=== PATIENT | male | born 1960 | race Two or more races ===

== ENCOUNTER 2024-11-02 12:54 | Inpatient (IN) | payer MEDICAID, OTHER ==
[~2024-11-02] VITALS: Ht 180.3 cm; Wt 76.4 kg
[2024-11-02] MEDS: ONDANSETRON HCL 4 MG/2 ML VIAL IV ONE (13:42)
[2024-11-02] MEDS: MORPHINE SULFATE 4 MG/ML SYR/VIAL IV ONE (13:43)
[2024-11-02] MEDS: SODIUM CHLORIDE 0.9% 500 ML IVB ONE (13:43)
[2024-11-02 13:56] LABS: Basophils # (auto) 0 10 ^3/uL (0-0.2); Basophils % (auto) 0.2 % (0.0-2.0); Eosinophils # (auto) 0 10 ^3/uL (0-0.8); Hematocrit 45.9 % (41.0-53.0); Hemoglobin 15.3 g/dL (13.5-17.5); Lymphocytes # (auto) 0.8 10 ^3/uL (0.4-5.4); Lymphocytes % (auto) 7.3 % (10.0-50.0); Mean Corpuscular Hemoglobin 30.4 pg (28.0-32.0); Mean Corpuscular Hgb Conc. 33.3 g/dL (32.0-36.0); Mean Corpuscular Volume 91.2 fL (80.0-100.0); Monocytes # (auto) 0.5 10 ^3/uL (0-1.3); Monocytes % (auto) 4.8 % (0.0-12.0); Neutrophils % (auto) 87.7 % (37.0-80.0); Nucleated Red Blood Cells % 0.2 %; Platelet Count (auto) 276 10^3/uL (140-450); Red Blood Cells 5.03 10^6/uL (4.5-5.90); Red Cell Distribution Width 13.7 % (11.8-14.3); White Blood Cell 11.4 10^3/uL (4.4-10.8)
--- NOTE | 2024-11-02 14:07 | DVH ---
CT ABDOMEN AND PELVIS WITHOUT CONTRAST CLINICAL HISTORY: pain TECHNIQUE: Multiple contiguous axial images of the abdomen and pelvis without intravenous contrast. T he images were reformatted degenerate coronal and sagittal reconstructions. All CT scans at this medical facility are performed using dose modulation techniques as appropriate t o a performed exam including the following:Automated exposure control was utilized; adjustment of the MA and/or KV according to patient size; and use of iterative reconstruction technique. Radiation Dose Information: CT Dose: CTDI volume is 8 mGy. Dose-length product is 474 mGy*cm Comparison: None FINDINGS: Evaluation of the abdomen and pelvis is limited without intravenous contrast. There is a 1.9 cm left lower pole renal cyst. There is no evidence of nephrolithiasis or hydronephros is. The liver, gallbladder, pancreas, adrenal glands, and spleen appear within normal limits. There is no gross evidence of abdominal lymphadenopathy. There is no free fluid or free air. The stomach grossly appears unremarkable. The small and large bowel loops demonstrate normal caliber . The appendix is not seen in the right lower quadrant abdomen. There are no secondary signs of acut e appendicitis. The abdominal aorta and IVC appear within normal limits. The bladder appears unremarkable for the degree of distention. There is mild prostatomegaly.. There is no gross evidence of a pelvic mass. There is no free fluid collection. Is a small fat containing l eft inguinal hernia. Lung bases are clear. There is no acute osseous abnormality. IMPRESSION: 1. There is no acute process in the abdomen and pelvis. 2. Mild prostatomegaly. 3. Small fat containing left inguinal hernia. HS:Y
[2024-11-02 14:24] LABS: Alanine Aminotransferase 19 U/L (7-40); Alkaline Phosphatase 87 U/L (46-116); Anion Gap 11 (5-15); Aspartate Aminotransferase 19 U/L (13-40); BUN/Creatinine Ratio 10.5 (10.0-20.0); Blood Urea Nitrogen 10 mg/dL (9-23); Calcium 9.8 mg/dL (8.7-10.4); Carbon Dioxide 24 mmol/L (20-31); Potassium 3.9 mmol/L (3.5-5.1); Sodium 144 mmol/L (136-145); Total Protein 7.2 g/dL (5.7-8.2)
[2024-11-02 14:25] LABS: Albumin 4.5 g/dL (3.2-4.8); Bilirubin, Total 0.7 mg/dL (0.2-1.0); Chloride 109 mmol/L (98-107); Glucose 110 mg/dL (74-106)
--- NOTE | 2024-11-02 14:33 | ED.PDOC ---
GI ASSESSMENT HPI Comments This is a 64-year-old male who comes in with chief complaint of abdominal pain. The patient states that the symptoms started approximately one day ago. The pain is in the lower abdominal area it was associated with nausea, vomiting and diarrhea. The patient describes the pain as cramping pain. He his stool is very dark and somewhat reddish. He states that the pain is a 5/10. The patient was given Zofran 4 mg IV push for the nausea and vomiting. He states that he has been seen for a similar episode in the past. Chief Complaint: Abdominal Pain Time Seen by MD: 13:03 Reviewed Notes: Nurses Notes, Medications, Allergies (Allergies to aspirin) Allergies: Coded Allergies: Aspirin (Verified Allergy, Unknown, 11/02/24) Information Source: Patient, Emergency Med Personnel Mode of Arrival: EMS Timing: Days Duration: Since onset Prehospital treatment: IVF, Other (Zofran 4 mg IV push) Quality: Aching, Cramping Vomitus: Bilious Stool: Blood Streaked Severity: Moderate Recent: None Recent Hx of: Other (History of peptic ulcer disease) Pain Location: RLQ, LLQ Modifying Factors: Nothing Associated sign and symptoms: Nausea, Vomiting, Diarrhea, Abdominal Pain Past Medical History PAST MEDICAL HISTORY: High Lipids, PUD Surgical History (Other): Peptic ulcer surgery, knee surgery, wrist surgery Family History Family History: Family hx of Cancer Social History Smoker: Non-Smoker Alcohol: Denies ETOH Use Drugs: Marijuana Lives In: Home Constitutional: denies: chills, diaphoresis, fatigue, fever, malaise, sweats, weakness, others EENTM: denies: blurred vision, double vision, ear bleeding, ear discharge, ear drainage, ear pain, ear ringing, eye pain, eye redness, hearing loss, mouth pain, mouth swelling, nasal discharge, nose bleeding, nose congestion, nose pain, photophobia, tearing, throat pain, throat swelling, voice changes, others Respiratory: denies: cough, hemoptysis, orthopnea, SOB at rest, shortness of breath, SOB with excertion, stridor, wheezing, others Cardiovascular: denies: chest pain, dizzy spells, diaphoresis, Dyspnea on exertion, edema, irregular heart beat, left arm pain, lightheadedness, palpitations, PND, syncope, others Gastrointestinal: reports: abdominal pain, nausea, vomiting, others (Dark red stool); denies: abdomen distended, blood streaked bowels, constipated, diarrhea, dysphagia, difficulty swallowing, hematemesis, melena, poor appetite, poor fluid intake, rectal bleeding, rectal pain Genitourinary: denies: burning, dysuria, flank pain, frequency, hematuria, incontinence, penile discharge, penile sore, pain, testicle pain, testicle swelling, urgency, others Neurological: denies: dizziness, fainting, headache, left sided numbness, left sided weakness, numbness, paresthesia, pre-existing deficit, right sided numbness, right sided weakness, seizure, speech problems, tingling, tremors, weakness, others Musculoskeletal: denies: back pain, gout, joint pain, joint swelling, muscle pain, muscle stiffness, neck pain, others Integumetry: denies: bruises, change in color, change in hair/nails, dryness, laceration, lesions, lumps, rash, wounds, others Allergic/Immunocompromised: denies: Difficulty Healing, Frequent Infections, Hives, Itching, others Hematologic/Lymphatic: denies: anemia, blood clots, easy bleeding, easy bruising, swollen glands, others Endocrine: denies: excessive hunger, excessive sweating, excessive thirst, excessive urination, flushing, intolerance to cold, intolerance to heat, unexplained weight gain, unexplained weight loss, others Psychiatric: denies: anxiety, bipolar disorder, depression, hopeless, panic disorder, schizophrenia, sleepless, suicidal, others Physical Exam General Appearance: Moderate Distress HEENT: Normal ENT Inspection, Pharynx Normal, TMs Normal Neck: Full Range of Motion, Non-Tender, Normal, Normal Inspection Respiratory: Chest Non-Tender, Lungs Clear, No Accessory Muscle Use, No Respiratory Distress, Normal Breath Sounds Cardiovascular: No Edema, No JVD, No Murmur, No Gallop, Normal Peripheral Pulses, Regular Rate/Rhythm Breast Exam: Deferred Gastrointestinal: Diffuse, No Organomegaly, No Pulsatile Mass, Normal Bowel Sounds, Soft, Tenderness Genitalia: Deferred Pelvic: Deferred Rectal: Deferred Extremities: No calf tenderness, Normal capillary refill, Normal inspection, Normal range of motion, Non-tender, No pedal edema Musculoskeletal : Apperance: Normal Neurologic: Alert, equipment services associate II-XII nml as Tested, No Motor Deficits, Normal Affect, Normal Mood, No Sensory Deficits Cerebellar Function: Normal Reflexes: Normal Skin: Dry, Normal Color, Warm Lymphatic: No Adenopathy EKG EKG : Pulse Rate (adult): 64 [place]: Normal Cardiac Rhythm: NSR ST: Nonsp Was a procedure done? Was a procedure done?: No GI differential Dx Differential Diagnosis: Cholecystitis, Diverticular disease, Gastritis/PUD, Gastroenteritis, Inflammatory BD, Pancreatitis X-Ray, Labs, Meds, VS Vital Signs Date Time Temp Pulse Resp B/P (MAP) Pulse Ox O2 Delivery O2 Flow Rate FiO2 11/02/24 15:20 67 16 97 Room Air* 0 21 11/02/24 15:18 67 16 121/74 11/02/24 15:07 67 18 96 Room Air 11/02/24 15:07 99.0 67 18 121/74 (90) 96 99.0 11/02/24 14:33 64 11/02/24 13:43 62 20 120/67 11/02/24 13:10 99.3 62 20 120/67 (84) 98 11/02/24 12:59 64 Lab Test 11/02/24 15:00 11/02/24 13:41 Range/Units Urine Color Light-brown Yellow Urine Clarity Turbid H Clear Urine pH 8.5 5.0-9.0 Urine Specific [place] 1.021 1.001-1.035 Urine Protein 1+ H Negative Urine Ketones Trace Negative Urine Blood 3+ H Negative /uL Urine Nitrite Negative Negative Urine Bilirubin Negative Negative Urine Urobilinogen Normal Negative mg/dL Urine Leukocyte Esterase Negative Negative /uL Urine RBC 3123 0 - 3 /hpf Urine Microscopic WBC 1 0-3 /HPF Urine Squamous Epithelial Cells None seen <5 /hpf Urine Bacteria None seen None Seen /hpf Urine Mucus Few None Seen Urine Glucose Normal Normal mg/dL White Blood Count 11.4 H 4.4-10.8 10^3/uL Red Blood Count 5.03 4.5-5.90 10^6/uL Hemoglobin 15.3 13.5-17.5 g/dL Hematocrit 45.9 41.0-53.0 % Mean Corpuscular Volume 91.2 80.0-100.0 fL Mean Corpuscular Hemoglobin 30.4 28.0-32.0 pg Mean Corpuscular Hemoglobin Concent 33.3 32.0-36.0 g/dL Red Cell Distribution Width 13.7 11.8-14.3 % Platelet Count 276 140-450 10^3/uL Mean Platelet Volume 7.2 6.9-10.8 fL Neutrophils (%) (Auto) 87.7 H 37.0-80.0 % Lymphocytes (%) (Auto) 7.3 L 10.0-50.0 % Monocytes (%) (Auto) 4.8 0.0-12.0 % Eosinophils (%) (Auto) 0.0 0.0-7.0 % Basophils (%) (Auto) 0.2 0.0-2.0 % Neutrophils # (Auto) 10.0 H 1.6-8.6 10 ^3/uL Lymphocytes # (Auto) 0.8 0.4-5.4 10 ^3/uL Monocytes # (Auto) 0.5 0-1.3 10 ^3/uL Eosinophils # (Auto) 0 0-0.8 10 ^3/uL Basophils # (Auto) 0 0-0.2 10 ^3/uL Nucleated Red Blood Cells 0.2 % Sodium Level 144 136-145 mmol/L Potassium Level 3.9 3.5-5.1 mmol/L Chloride Level 109 H 98-107 mmol/L Carbon Dioxide Level 24 20-31 mmol/L Anion Gap 11 5-15 Blood Urea Nitrogen 10 9-23 mg/dL Creatinine 0.95 0.700-1.30 mg/dL Glomerular Filtration Rate Calc 89 >90 mL/min BUN/Creatinine Ratio 10.5 10.0-20.0 Serum Glucose 110 H 74-106 mg/dL Calcium Level 9.8 8.7-10.4 mg/dL Total Bilirubin 0.7 0.2-1.0 mg/dL Aspartate Amino Transferase (AST) 19 13-40 U/L Alanine Aminotransferase (ALT) 19 7-40 U/L Alkaline Phosphatase 87 46-116 U/L Total Protein 7.2 5.7-8.2 g/dL Albumin 4.5 3.2-4.8 g/dL Current Medications Medications (Trade) Dose Ordered Sig/Dimitry Route Start Time Stop Time Status Last Admin Ondansetron HCl (Zofran) 4 mg ONCE ONCE IV 11/02/24 13:30 11/02/24 13:31 DC 11/02/24 13:42 Morphine Sulfate 4 mg ONCE ONCE IV 11/02/24 13:30 11/02/24 13:31 DC 11/02/24 13:43 Sodium Chloride 500 ml @ 500 mls/hr Q1H ONCE IVB 11/02/24 13:30 11/02/24 14:29 DC 11/02/24 13:43 IV Hep-Lock was established The patient was given morphine 4 mg IV push for the pain The patient was given Zofran 4 mg IV push for the nausea The patient was being bolused with normal saline The CBC shows an elevated white blood cell count of 11.4 The rest of the CBC and chemistry panel are within normal limits CT scan of the abdomen and pelvis shows: IMPRESSION: 1. There is no acute process in the abdomen and pelvis. 2. Mild prostatomegaly. 3. Small fat containing left inguinal hernia. The patient was being admitted to the hospitalist. Images Reviewed?: Images reviewed and evaluated by me Time of 1ST Reevaluation: 14:33 Reevaluation 1ST: Unchanged Patient Education/Counseling: Diagnosis, Treatment, Prognosis Family Education/Counseling: No Family Present Departure 1 Departure Time of Disposition: 16:50 Impression: Primary Impression: Intractable abdominal pain Additional Impression: Lower GI bleed Disposition: ADMITTED INPATIENT Admit to: Med Surg Condition: Fair Critical Care Note Critical Care Time?: No Stability Stability form required: Yes Unstable for transfer: ED Physician Assesment (Clinical assesment) Heart Score Heart Score: Heart Score Response (Comments) Value History N/A 0 EKG N/A 0 Age N/A 0 Risk Factors N/A 0 Troponin N/A 0 Total 0 ASHISH PEÑALOZA MD Nov 02, 2024 14:33
[2024-11-02 15:20] VITALS: PULSE 67; RESP 16; O2SAT 97
[2024-11-02 15:38] LABS: Urine Bacteria None Seen /hpf (None Seen)
[2024-11-02 15:51] LABS: Urine Blood 3+ /uL (Negative); Urine Clarity Turbid (Clear); Urine Color Light-Brown (Yellow); Urine Mucus FEW (None Seen); Urine Protein, UAD 1+ (Negative); Urine Specific Gravity 1.021 (1.001-1.035); Urine Squamous Epithelial Cell None Seen /hpf (<5); Urine Urobilinogen Normal (Negative); Urine WBC 1 /HPF (0-3); Urine pH 8.5 (5.0-9.0)
[2024-11-02] MEDS: SODIUM CHLORIDE 0.9% 1,000 ML IV ONE (17:15)
--- NOTE | 2024-11-02 17:43 | DVHHP2 ---
History of Present Illness Reason for Visit: Nausea, vomiting, diarrhea History of Present Illness Hong Duckworth is a 64-year-old male with past medical history of hyperlipidemia, depression, and peptic ulcer disease, who came in for abdominal pain. Patient states he yesterday he started having abdominal pain with nausea, vomiting, and diarrhea. He states his vomiting is brown, coffee colored, and he has bright red blood in his diarrhea. He has a history of a bleeding ulcer over 10 years ago that had to be cauterized. States his last EGD was about 2 years ago. Cardiovascular: hyperipidemia GI: Peptic Ulcer disease Psych: Depression Past Surgical History: Other (bilateral knee repair, right wrist, ulcer) Smoke: No ALCOHOL: none Drugs: Marijuana Lives: with Family Domestic Violence: Neg Review of Systems Constitutional: No: Fever, Chills, Sweats, Weakness, Malaise, Other Eyes: No: Pain, Vision change, Conjunctivae inflammation, Eyelid inflammation, Other, Redness ENT: No: Ear pain, Ear discharge, Nose pain, Nose discharge, Nose congestion, Mouth pain, Mouth swelling, Throat pain, Throat swelling, Other Respiratory: No: Cough, Dry, Shortness of breath, SOB with excertion, Wheezing, Hemoptysis, Pleuritic Pain, Sputum, Wheezing, Other Cardiovascular: No: Chest Pain, Palpitations, Orthopnea, Paroxysmal Noc. Dyspnea, Edema, Lt Headedness, Other Gastrointestinal: Nausea, Vomiting, Abdominal Pain, Diarrhea; No: Constipation, Melena, Hematochezia, Other Genitourinary: No Dysuria, No Frequency, No Incontinence, No Hematuria, No Retention, No Other Musculoskeletal: No: other, neck pain, shoulder pain, arm pain, back pain, hand pain, leg pain, foot pain Skin: No: Rash, Lesions, Jaundice, Bruising, Other Neurological: No: Weakness, Numbness, Incoordination, Change in speech, Confusion, Seizures, Other Allergies: Coded Allergies: Aspirin (Verified Allergy, Unknown, 11/02/24) Medications Current Medications Medications Dose Ordered Sig/Dimitry Route Start Time Stop Time Status Last Admin Dose Admin Acetaminophen/ Hydrocodone Bitart 1 tab Q4HP PRN PO 11/02/24 17:00 UNV Ondansetron HCl 4 mg Q4HP PRN IV 11/02/24 17:00 UNV Acetaminophen 650 mg Q6HP PRN PO 11/02/24 17:00 UNV Morphine Sulfate 2 mg Q4HPRN PRN IV 11/02/24 17:00 UNV Exam Vital Signs Vital Signs Date Time Temp Pulse Resp B/P (MAP) Pulse Ox O2 Delivery O2 Flow Rate FiO2 11/02/24 15:20 67 16 97 Room Air* 0 21 11/02/24 15:18 121/74 11/02/24 15:07 99.0 99.0 General Appearance: Alert, Oriented X3, Cooperative, No acute distress HEENT: Atraumatic, PERRLA, Mucous membr. moist/pink Respiratory: Clear to auscultation, Normal air movement Cardiovascular: Regular rate, Normal S1, Normal S2, No murmurs Abdominal: Other (distended) Extremities: No clubbing, No cyanosis, No edema, Normal pulses, No tenderness/swelling Skin: No rashes, No breakdown, No significant lesion Neuro: Normal gait, Strength at 5/5 X4 ext, Normal tone Psych/Mental Status: Mental status NL, Mood NL Labs/Xrays Labs Test 11/02/24 15:00 11/02/24 13:41 Range/Units Urine Color Light-brown Yellow Urine Clarity Turbid H Clear Urine pH 8.5 5.0-9.0 Urine Specific [place] 1.021 1.001-1.035 Urine Protein 1+ H Negative Urine Ketones Trace Negative Urine Blood 3+ H Negative /uL Urine Nitrite Negative Negative Urine Bilirubin Negative Negative Urine Urobilinogen Normal Negative mg/dL Urine Leukocyte Esterase Negative Negative /uL Urine RBC 3123 0 - 3 /hpf Urine Microscopic WBC 1 0-3 /HPF Urine Squamous Epithelial Cells None seen <5 /hpf Urine Bacteria None seen None Seen /hpf Urine Mucus Few None Seen Urine Glucose Normal Normal mg/dL White Blood Count 11.4 H 4.4-10.8 10^3/uL Red Blood Count 5.03 4.5-5.90 10^6/uL Hemoglobin 15.3 13.5-17.5 g/dL Hematocrit 45.9 41.0-53.0 % Mean Corpuscular Volume 91.2 80.0-100.0 fL Mean Corpuscular Hemoglobin 30.4 28.0-32.0 pg Mean Corpuscular Hemoglobin Concent 33.3 32.0-36.0 g/dL Red Cell Distribution Width 13.7 11.8-14.3 % Platelet Count 276 140-450 10^3/uL Mean Platelet Volume 7.2 6.9-10.8 fL Neutrophils (%) (Auto) 87.7 H 37.0-80.0 % Lymphocytes (%) (Auto) 7.3 L 10.0-50.0 % Monocytes (%) (Auto) 4.8 0.0-12.0 % Eosinophils (%) (Auto) 0.0 0.0-7.0 % Basophils (%) (Auto) 0.2 0.0-2.0 % Neutrophils # (Auto) 10.0 H 1.6-8.6 10 ^3/uL Lymphocytes # (Auto) 0.8 0.4-5.4 10 ^3/uL Monocytes # (Auto) 0.5 0-1.3 10 ^3/uL Eosinophils # (Auto) 0 0-0.8 10 ^3/uL Basophils # (Auto) 0 0-0.2 10 ^3/uL Nucleated Red Blood Cells 0.2 % Sodium Level 144 136-145 mmol/L Potassium Level 3.9 3.5-5.1 mmol/L Chloride Level 109 H 98-107 mmol/L Carbon Dioxide Level 24 20-31 mmol/L Anion Gap 11 5-15 Blood Urea Nitrogen 10 9-23 mg/dL Creatinine 0.95 0.700-1.30 mg/dL Glomerular Filtration Rate Calc 89 >90 mL/min BUN/Creatinine Ratio 10.5 10.0-20.0 Serum Glucose 110 H 74-106 mg/dL Calcium Level 9.8 8.7-10.4 mg/dL Total Bilirubin 0.7 0.2-1.0 mg/dL Aspartate Amino Transferase (AST) 19 13-40 U/L Alanine Aminotransferase (ALT) 19 7-40 U/L Alkaline Phosphatase 87 46-116 U/L Total Protein 7.2 5.7-8.2 g/dL Albumin 4.5 3.2-4.8 g/dL CT ABDOMEN AND PELVIS WITHOUT CONTRAST FINDINGS: Evaluation of the abdomen and pelvis is limited without intravenous contrast. There is a 1.9 cm left lower pole renal cyst. There is no evidence of nephrolithiasis or hydronephrosis. The liver, gallbladder, pancreas, adrenal glands, and spleen appear within normal limits. There is no gross evidence of abdominal lymphadenopathy. There is no free fluid or free air. The stomach grossly appears unremarkable. The small and large bowel loops demonstrate normal caliber. The appendix is not seen in the right lower quadrant abdomen. There are no secondary signs of acute appendicitis. The abdominal aorta and IVC appear within normal limits. The bladder appears unremarkable for the degree of distention. There is mild prostatomegaly.. There is no gross evidence of a pelvic mass. There is no free fluid collection. Is a small fat containing left inguinal hernia. Lung bases are clear. There is no acute osseous abnormality. IMPRESSION: 1. There is no acute process in the abdomen and pelvis. 2. Mild prostatomegaly. 3. Small fat containing left inguinal hernia. Assessment/Plan Assessment/Plan Assessment: Peptic ulcer disease, Lower GI bleed, Depression, Plan: Admit to med-Surg, GI consult, IV antibiotics, IV hydration, Protonix IV BID, Antiemetics as needed, Pain medicine as needed, Clear liquid diet, Patient's will bring in his home medications so they can be reconciled, Plan discussed with: Patient My Orders Orders - YASMIN COON Procedure Category Date Status Time Admit ADMIT 11/02/24 Transmitted 16:49 Code Status CODE 11/02/24 Transmitted 16:49 Hydrocodone-Acet PHA 11/02/24 Logged 5/325mg Tab ([place] 17:00 Ondansetron Hcl PHA 11/02/24 Logged (Zofran) 17:00 Complete Blood Count LAB 11/03/24 Verified 04:00 Comprehensive LAB 11/03/24 Verified Metabolic Panel 04:00 Condition: Serious ANTONI 11/02/24 In Process 16:49 Acetaminophen Tablet PHA 11/02/24 Logged (Tylenol Tablet) 17:00 Clear Liq Diet DIET 11/02/24 Transmitted Dinner Morphine Sulfate PHA 11/02/24 Logged Injection 17:00 * Gi Dvh Paranormal Investigator CONS 11/02/24 Transmitted 16:49 Date of Service: Nov 02, 2024 Billing Provider: YASMIN COON Common Visit Codes: [id number] INP/OBS CARE (MOD) YASMIN COON Nov 02, 2024 17:43
[2024-11-02] MEDS: cefTRIAXone 1GM/50ML D5W 50 ML IV ONE (18:08)
[2024-11-02] MEDS: MORPHINE SULFATE INJ 2 MG/ml SYRG IV PRN (18:09)
--- NOTE | 2024-11-02 18:51 | ECG ---
[facility] Test Date: 2024-11-02 Test Time: 12:58:08 Pat Name: ELVIS KUMAR Department: ED Room: [facility] Gender: M Appeals Officer: ROSELIA : 1960 Requested By: ASHISH PEÑALOZA Order Number: [id number] Reading MD: Carlos Eduardo Judd Measurements Intervals [place] Rate: 64 P: 0 TN: 126 QRS: 10 QRSD: 99 T: -1 QT: 412 QTc: 425 Interpretive Statements Sinus rhythm Electronically Signed On 11-05-2024 18:57:54 PDT by Carlos Eduardo Judd Please click the below link to view image of tracing.
[2024-11-02] MEDS: PANTOPRAZOLE 40 MG/10 ML VIAL INJ IV SCH (21:41)
[2024-11-02 21:45] VITALS: PULSE 61; RESP 18; O2SAT 97
[2024-11-02 21:46] VITALS: BP 111/81; PULSE 90; RESP 18; TEMP 97.6; O2SAT 98
[2024-11-02] MEDS ORDERED: SERT25TA84 PO (22:03)
[2024-11-02] MEDS: metroNIDAZOLE 500MG/100ML 100 ML IV SCH (22:46)
[2024-11-03] VITALS (8 sets, daily range): BP systolic 114–136; BP diastolic 48–77; PULSE 42–82; RESP 15–20; TEMP 97.6–99.2; O2SAT 91–99
[2024-11-03] MEDS: ONDANSETRON HCL 4 MG/2 ML VIAL IV PRN (00:23)
[2024-11-03] MEDS: HYDROcodone-ACET 5/325MG TAB PO PRN (01:18)
[2024-11-03] MEDS: cefTRIAXone 1GM/50ML D5W 50 ML IV SCH (09:15)
--- NOTE | 2024-11-03 09:23 | DVHPNRES ---
Progress Note Date Seen: Nov 03, 2024 Resident Creating Document: LICHA MCCARTY RESIDENT Has the PT tested + for MRSA If YES, has PT been informed?: No Medical Necessity Reason Pt with a Central, PICC or Fol: No Subjective Review of Systems Hong Duckworth is a 64-year-old male with a past medical history of hyperlipidemia, depression, and peptic ulcer disease who presented with abdominal pain, nausea, vomiting, and diarrhea that started yesterday. He describes his vomiting as brown, resembling coffee grounds, and reports bright red blood in his diarrhea. He has a history of a bleeding ulcer over 10 years ago, which required cauterization, with his last EGD approximately two years ago. Additionally, the patient reports left flank pain and hematuria. A CT scan was performed and showed no acute process, prostatomegaly and small fat inguinal hernia . Gastroenterology and Urology were consulted and is pending evaluation. The patient has been started on antibiotics, including metronidazole, and placed on IV fluids for supportive care. HB stable Past Medical History Hyperlipidemia Depression Peptic ulcer disease Past Surgical History Bilateral knee repair Right wrist surgery Peptic ulcer cauterization Social History Smokes: No Alcohol: None Drugs: Reports marijuana use Lives with family Objective vital signs Vital Sign Date Time Temp Pulse Resp B/P (MAP) Pulse Ox O2 Delivery O2 Flow Rate FiO2 11/03/24 04:56 98.5 71 18 117/48 (71) 98 98.5 11/02/24 21:45 Room Air* 0 21 Total Intake and Output 11/02/24 11/02/24 11/03/24 15:00 23:00 07:00 Intake Total 50 ml 200 ml Balance 50 ml 200 ml medications Current Medications Medications Dose Ordered Sig/Dimitry Route Start Time Stop Time Status Last Admin Dose Admin Acetaminophen/ Hydrocodone Bitart 1 tab Q4HP PRN PO 11/02/24 17:00 11/03/24 05:28 1 TAB Ondansetron HCl 4 mg Q4HP PRN IV 11/02/24 17:00 11/03/24 00:23 4 MG Acetaminophen 650 mg Q6HP PRN PO 11/02/24 17:00 Morphine Sulfate 2 mg Q4HPRN PRN IV 11/02/24 17:00 11/03/24 00:26 2 MG Ceftriaxone Sodium 50 ml @ 100 mls/hr DAILY@09 IV 11/03/24 09:00 11/03/24 09:15 100 MLS/HR Metronidazole 100 ml @ 100 mls/hr Q8HR IV 11/02/24 22:00 11/03/24 04:45 100 MLS/HR Pantoprazole Sodium 40 mg BID IV 11/02/24 22:00 11/02/24 21:41 40 MG Sodium Chloride 1,000 ml @ 150 mls/hr Q6H40M IV 11/03/24 09:15 UNV Examination General Appearance: Alert, Oriented X3, Cooperative, No acute distress HEENT: Atraumatic, PERRLA, Mucous membr. moist/pink Respiratory: Clear to auscultation, Normal air movement Cardiovascular: Regular rate, Normal S1, Normal S2, No murmurs Abdominal: distended, tenderness at palpation in midgastrium and left flank Extremities: No clubbing, No cyanosis, No edema, Normal pulses, No tenderness/swelling Skin: No rashes, No breakdown, No significant lesion Neuro: Normal gait, Strength at 5/5 X4 ext, Normal tone Psych/Mental Status: Mental status NL, Mood NL laboratory and microbiology Laboratory Tests 11/02/24 13:41 Test 11/02/24 13:41 Range/Units Serum Glucose 110 H 74-106 mg/dL Problem List/Assessment/Plan Problem List/Assessment/Plan #Upper Gi Bleeding #Hematuria #Possible acute gastroenteritis #Sepsis? #Prostatomegaly #Small inguinal hernia Clear liquid diet IV fluids Ceftriaxone + metronidazole Gi consult Urology consult Pending PSA, SOB, urine culture Case discussed with Dr Jean Baptiste Plan discussed with: Patient, Other My Orders My Orders Orders - LICHA MCCARTY RESIDENT Procedure Category Date Status Time Stool Occult Blood LAB 11/03/24 Logged 07:17 Sodium Chloride 0.9% PHA 11/03/24 Logged 09:15 Urine Bacterial RIKKI 11/03/24 In Process Culture 09:11 Psa Total+% Free LAB 11/03/24 Logged 09:11 Date of Service: Nov 03, 2024 Billing Provider: PENNY JEAN BAPTISTE MD Common Visit Codes: [id number] INP/OBS CARE(HIGH) LICHA MCCARTY RESIDENT Nov 03, 2024 09:23 PENNY JEAN BAPTISTE MD Nov 03, 2024 23:08
[2024-11-03] MEDS: SODIUM CHLORIDE 0.9% 1,000 ML IV SCH (10:01)
[2024-11-03 10:14] LABS: Basophils # (auto) 0 10 ^3/uL (0-0.2); Basophils % (auto) 0.2 % (0.0-2.0); Eosinophils # (auto) 0 10 ^3/uL (0-0.8); Hemoglobin 13.5 g/dL (13.5-17.5); Lymphocytes % (auto) 8.1 % (10.0-50.0); Mean Corpuscular Hemoglobin 30.3 pg (28.0-32.0); Mean Corpuscular Hgb Conc. 32.9 g/dL (32.0-36.0); Mean Corpuscular Volume 92.1 fL (80.0-100.0); Monocytes # (auto) 1.2 10 ^3/uL (0-1.3); Monocytes % (auto) 9.9 % (0.0-12.0); Neutrophils # (auto) 9.8 10 ^3/uL (1.6-8.6); Neutrophils % (auto) 81.8 % (37.0-80.0); Platelet Count (auto) 237 10^3/uL (140-450); Red Blood Cells 4.46 10^6/uL (4.5-5.90); Red Cell Distribution Width 13.9 % (11.8-14.3)
[2024-11-03 10:32] LABS: Alanine Aminotransferase 14 U/L (7-40); Albumin 3.9 g/dL (3.2-4.8); Alkaline Phosphatase 74 U/L (46-116); Anion Gap 8 (5-15); Aspartate Aminotransferase 19 U/L (13-40); BUN/Creatinine Ratio 7.8 (10.0-20.0); Calcium 9.4 mg/dL (8.7-10.4); Carbon Dioxide 26 mmol/L (20-31); Potassium 4.3 mmol/L (3.5-5.1); Sodium 144 mmol/L (136-145); Total Protein 6.4 g/dL (5.7-8.2)
[2024-11-03 10:33] LABS: Bilirubin, Total 0.5 mg/dL (0.2-1.0)
[2024-11-03 10:43] LABS: Blood Urea Nitrogen 9 mg/dL (9-23); Chloride 110 mmol/L (98-107); Glucose 143 mg/dL (74-106)
--- NOTE | 2024-11-03 17:20 | DVHINCON2 ---
Date of service: Nov 03, 2024 Referring Physician Hospitalist Reason for Consultation Hematuria History of Present Illness Patient admitted for abdominal pain and noted to report hematuria that is now clearing up. His CT scan was unremarkable with the exception of mild prostate enlargement. 64-year-old male with past medical history of hyperlipidemia, depression, and peptic ulcer disease, who came in for abdominal pain. Patient states he yesterday he started having abdominal pain with nausea, vomiting, and diarrhea. He states his vomiting is brown, coffee colored, and he has bright red blood in his diarrhea. He has a history of a bleeding ulcer over 10 years ago that had to be cauterized. States his last EGD was about 2 years ago. Past Medical History Cardiovascular: hyperipidemia GI: Peptic Ulcer disease Psych: Depression Past Surgical History Other (bilateral knee repair, right wrist, ulcer) Family History: Diabetes mellitus G8 SISTER Malignant neoplasm of breast G8 SISTER Allergies: Coded Allergies: Aspirin (Verified Allergy, Unknown, 11/02/24) Home Meds Reported Medications Sertraline Hcl (Zoloft) 25 Mg Tab, 1 TAB PO DAILY, #30 TAB 2 Refills 11/02/24 Current Medications Current Medications Medications (Trade) Dose Ordered Sig/Dimitry Route PRN Reason Start Time Stop Time Status Last Admin Ceftriaxone Sodium 50 ml @ 100 mls/hr DAILY@09 IV 11/03/24 09:00 11/03/24 09:15 Metronidazole 100 ml @ 100 mls/hr Q8HR IV 11/02/24 22:00 11/03/24 14:16 Pantoprazole Sodium (Protonix) 40 mg BID IV 11/02/24 22:00 11/03/24 09:45 Sodium Chloride 1,000 ml @ 150 mls/hr Q6H40M IV 11/03/24 09:15 11/03/24 16:22 Review of Systems Constitutional: No: Fever, Chills, Sweats, Weakness, Malaise, Other Eyes: No: Pain, Vision change, Conjunctivae inflammation, Eyelid inflammation, Other, Redness ENT: No: Ear pain, Ear discharge, Nose pain, Nose discharge, Nose congestion, Mouth pain, Mouth swelling, Throat pain, Throat swelling, Other Respiratory: No: Cough, Dry, Shortness of breath, SOB with excertion, Wheezing, Hemoptysis, Pleuritic Pain, Sputum, Wheezing, Other Cardiovascular: No: Chest Pain, Palpitations, Orthopnea, Paroxysmal Noc. Dyspnea, Edema, Lt Headedness, Other Gastrointestinal: Nausea, Vomiting, Abdominal Pain, Diarrhea; No: Constipation, Melena, Hematochezia, Other Genitourinary: No Dysuria, No Frequency, No Incontinence, No Hematuria, No Retention, No Other Musculoskeletal: No: other, neck pain, shoulder pain, arm pain, back pain, hand pain, leg pain, foot pain Skin: No: Rash, Lesions, Jaundice, Bruising, Other Neurological: No: Weakness, Numbness, Incoordination, Change in speech, Confusion, Seizures, Other Allergies: Coded Allergies: Aspirin (Verified Allergy, Unknown, 11/02/24) Medications Current Medications Medications Dose Ordered Sig/Dimitry Route Start Time Stop Time Status Last Admin Dose Admin Acetaminophen/ Hydrocodone Bitart 1 tab Q4HP PRN PO 11/02/24 17:00 UNV Ondansetron HCl 4 mg Q4HP PRN IV 11/02/24 17:00 UNV Acetaminophen 650 mg Q6HP PRN PO 11/02/24 17:00 UNV Morphine Sulfate 2 mg Q4HPRN PRN IV 11/02/24 17:00 UNV Vital Signs Vital Signs Date Time Temp Pulse Resp B/P (MAP) Pulse Ox O2 Delivery O2 Flow Rate FiO2 11/03/24 13:00 98.9 45 15 114/59 (77) 99 98.9 11/03/24 08:05 Room Air* 0 21 Physical Exam Vital Signs Date Time Temp Pulse Resp B/P (MAP) Pulse Ox O2 Delivery O2 Flow Rate FiO2 11/02/24 15:20 67 16 97 Room Air* 0 21 11/02/24 15:18 121/74 11/02/24 15:07 99.0 99.0 General Appearance: Alert, Oriented X3, Cooperative, No acute distress HEENT: Atraumatic, PERRLA, Mucous membr. moist/pink Respiratory: Clear to auscultation, Normal air movement Cardiovascular: Regular rate, Normal S1, Normal S2, No murmurs Abdominal: Other (distended) Extremities: No clubbing, No cyanosis, No edema, Normal pulses, No tenderness/swelling Skin: No rashes, No breakdown, No significant lesion Neuro: Normal gait, Strength at 5/5 X4 ext, Normal tone Psych/Mental Status: Mental status NL, Mood NL Labs/Diagnostic Data Labs Test 11/03/24 09:40 11/02/24 15:00 Range/Units White Blood Count 12.0 H 4.4-10.8 10^3/uL Red Blood Count 4.46 L 4.5-5.90 10^6/uL Hemoglobin 13.5 13.5-17.5 g/dL Hematocrit 41.0 # 41.0-53.0 % Mean Corpuscular Volume 92.1 80.0-100.0 fL Mean Corpuscular Hemoglobin 30.3 28.0-32.0 pg Mean Corpuscular Hemoglobin Concent 32.9 32.0-36.0 g/dL Red Cell Distribution Width 13.9 11.8-14.3 % Platelet Count 237 140-450 10^3/uL Mean Platelet Volume 7.3 6.9-10.8 fL Neutrophils (%) (Auto) 81.8 H 37.0-80.0 % Lymphocytes (%) (Auto) 8.1 L 10.0-50.0 % Monocytes (%) (Auto) 9.9 0.0-12.0 % Eosinophils (%) (Auto) 0.0 0.0-7.0 % Basophils (%) (Auto) 0.2 0.0-2.0 % Neutrophils # (Auto) 9.8 H 1.6-8.6 10 ^3/uL Lymphocytes # (Auto) 1.0 0.4-5.4 10 ^3/uL Monocytes # (Auto) 1.2 0-1.3 10 ^3/uL Eosinophils # (Auto) 0 0-0.8 10 ^3/uL Basophils # (Auto) 0 0-0.2 10 ^3/uL Nucleated Red Blood Cells 0.0 % Sodium Level 144 136-145 mmol/L Potassium Level 4.3 3.5-5.1 mmol/L Chloride Level 110 H 98-107 mmol/L Carbon Dioxide Level 26 20-31 mmol/L Anion Gap 8 5-15 Blood Urea Nitrogen 9 9-23 mg/dL Creatinine 1.15 0.700-1.30 mg/dL Glomerular Filtration Rate Calc 71 >90 mL/min BUN/Creatinine Ratio 7.8 L 10.0-20.0 Serum Glucose 143 H 74-106 mg/dL Calcium Level 9.4 8.7-10.4 mg/dL Total Bilirubin 0.5 0.2-1.0 mg/dL Aspartate Amino Transferase (AST) 19 13-40 U/L Alanine Aminotransferase (ALT) 14 7-40 U/L Alkaline Phosphatase 74 46-116 U/L Total Protein 6.4 5.7-8.2 g/dL Albumin 3.9 3.2-4.8 g/dL Urine Color Light-brown Yellow Urine Clarity Turbid H Clear Urine pH 8.5 5.0-9.0 Urine Specific [place] 1.021 1.001-1.035 Urine Protein 1+ H Negative Urine Ketones Trace Negative Urine Blood 3+ H Negative /uL Urine Nitrite Negative Negative Urine Bilirubin Negative Negative Urine Urobilinogen Normal Negative mg/dL Urine Leukocyte Esterase Negative Negative /uL Urine RBC 3123 0 - 3 /hpf Urine Microscopic WBC 1 0-3 /HPF Urine Squamous Epithelial Cells None seen <5 /hpf Urine Bacteria None seen None Seen /hpf Urine Mucus Few None Seen Urine Glucose Normal Normal mg/dL PATIENT: MILES KUMAR ACCT: [id number] UNIT: [id number] : 1960 LOC: ER ROOM / BED: / AGE / SEX: 64 / M ADM STATUS: REG ER SERVICE 1321 ORDERING PHYSICIAN: ASHISH PEÑALOZA MD PROCEDURE(s): ABPL - CT AB PEL WO CON-NO ORAL OR IV REASON: pain ORDER NUMBER(s): [id number], ACCESSION NUMBER(s): [id number] CT ABDOMEN AND PELVIS WITHOUT CONTRAST CLINICAL HISTORY: pain TECHNIQUE: Multiple contiguous axial images of the abdomen and pelvis without intravenous contrast. The images were reformatted degenerate coronal and sagittal reconstructions. All CT scans at this medical facility are performed using dose modulation tech niques as appropriate to a performed exam including the following:Automated exposure control was utilized; adjustment of the MA and/or KV according to patient size; and use of iterative reconstruction technique. Radiation Dose Information: CT Dose: CTDI volume is 8 mGy. Dose-length product is 474 mGy*cm Comparison: None FINDINGS: Evaluation of the abdomen and pelvis is limited without intravenous contrast. There is a 1.9 cm left lower pole renal cyst. There is no evidence of nephrolithiasis or hydronephrosis. The liver, gallbladder, pancreas, adrenal glands, and spleen appear within normal limits. There is no gross evidence of abdominal lymphadenopathy. There is no free fluid or free air. The stomach grossly appears unremarkable. The small and large bowel loops demonstrate normal caliber. The appendix is not seen in the right lower quadrant abdomen. There are no secondary signs of acute appendicitis. The abdominal aorta and IVC appear within normal limits. The bladder appears unremarkable for the degree of distention. There is mild prostatomegaly.. There is no gross evidence of a pelvic mass. There is no free fluid collection. Is a small fat containing left inguinal hernia. Lung bases are clear. There is no acute osseous abnormality. IMPRESSION: 1. There is no acute process in the abdomen and pelvis. 2. Mild prostatomegaly. 3. Small fat containing left inguinal hernia. HS:Y ATED BY: RANJIT LINDSEY MD DICTATED DATE/TIME: 11/02/241403 SIGNED BY: RANJIT LINDSEY MD SIGNED DATE/TIME: 11/02/241403 CC: Assessment BPH Hematuria Plan/Recommendation PSA level Outpatient cystoscopy to be arranged Plan discussed with: Patient, Other RYLEE ASHLEY MD Nov 03, 2024 17:20
--- NOTE | 2024-11-03 19:45 | DVHINCON2 ---
Date of service: Nov 03, [address] Pete Reason for Consultation Abdominal pain left lower quadrant. With nausea vomiting and some diarrhea his vomiting was slightly brown and coffee colored History of ulcer disease History of Present Illness Abdominal pain left lower quadrant. With nausea vomiting and some diarrhea his vomiting was slightly brown and coffee colored Also and had some minimal blood in the diarrhea. He has history of bleeding ulcers about 10 years ago which was caused cauterized. Apparently had some EGD done about two years ago he does not know the details. Possibly an ulcer but he is not sure evidence of persistent nausea vomiting and he is also asking for pain pills at this time Past Medical History Hyperlipidemia peptic ulcer disease depression Past Surgical History Knee repair and right wrist Family History: Diabetes mellitus G8 SISTER Malignant neoplasm of breast G8 SISTER Family History Noncontributory Social History Denies smoking or drinking but he uses marijuana Allergies: Coded Allergies: Aspirin (Verified Allergy, Unknown, 11/02/24) Home Meds Reported Medications Sertraline Hcl (Zoloft) 25 Mg Tab, 1 TAB PO DAILY, #30 TAB 2 Refills 11/02/24 Current Medications Current Medications Medications (Trade) Dose Ordered Sig/Dimitry Route PRN Reason Start Time Stop Time Status Last Admin Ceftriaxone Sodium 50 ml @ 100 mls/hr DAILY@09 IV 11/03/24 09:00 11/03/24 09:15 Metronidazole 100 ml @ 100 mls/hr Q8HR IV 11/02/24 22:00 11/03/24 14:16 Pantoprazole Sodium (Protonix) 40 mg BID IV 11/02/24 22:00 11/03/24 09:45 Sodium Chloride 1,000 ml @ 150 mls/hr Q6H40M IV 11/03/24 09:15 11/03/24 16:22 Review of Systems Noncontributory Vital Signs Vital Signs Date Time Temp Pulse Resp B/P (MAP) Pulse Ox O2 Delivery O2 Flow Rate FiO2 11/03/24 17:00 99.2 42 16 122/63 (82) 98 99.2 11/03/24 08:05 Room Air* 0 21 Physical Exam Originally built and nourished male in no acute distress but chronically ill looking complete slightly restless wanting pain medications now HEENT examination no pallor no icterus neck was supple no lymphadenopathy Lungs clear Cardiovascular unremarkable Abdomen is soft mild tenderness in the epigastrium no rigidity no guarding no masses bowel sounds Extremities no edema no varicosities no clubbing Neurological grossly intact Labs/Diagnostic Data Labs Test 11/03/24 09:40 11/02/24 15:00 Range/Units White Blood Count 12.0 H 4.4-10.8 10^3/uL Red Blood Count 4.46 L 4.5-5.90 10^6/uL Hemoglobin 13.5 13.5-17.5 g/dL Hematocrit 41.0 # 41.0-53.0 % Mean Corpuscular Volume 92.1 80.0-100.0 fL Mean Corpuscular Hemoglobin 30.3 28.0-32.0 pg Mean Corpuscular Hemoglobin Concent 32.9 32.0-36.0 g/dL Red Cell Distribution Width 13.9 11.8-14.3 % Platelet Count 237 140-450 10^3/uL Mean Platelet Volume 7.3 6.9-10.8 fL Neutrophils (%) (Auto) 81.8 H 37.0-80.0 % Lymphocytes (%) (Auto) 8.1 L 10.0-50.0 % Monocytes (%) (Auto) 9.9 0.0-12.0 % Eosinophils (%) (Auto) 0.0 0.0-7.0 % Basophils (%) (Auto) 0.2 0.0-2.0 % Neutrophils # (Auto) 9.8 H 1.6-8.6 10 ^3/uL Lymphocytes # (Auto) 1.0 0.4-5.4 10 ^3/uL Monocytes # (Auto) 1.2 0-1.3 10 ^3/uL Eosinophils # (Auto) 0 0-0.8 10 ^3/uL Basophils # (Auto) 0 0-0.2 10 ^3/uL Nucleated Red Blood Cells 0.0 % Sodium Level 144 136-145 mmol/L Potassium Level 4.3 3.5-5.1 mmol/L Chloride Level 110 H 98-107 mmol/L Carbon Dioxide Level 26 20-31 mmol/L Anion Gap 8 5-15 Blood Urea Nitrogen 9 9-23 mg/dL Creatinine 1.15 0.700-1.30 mg/dL Glomerular Filtration Rate Calc 71 >90 mL/min BUN/Creatinine Ratio 7.8 L 10.0-20.0 Serum Glucose 143 H 74-106 mg/dL Calcium Level 9.4 8.7-10.4 mg/dL Total Bilirubin 0.5 0.2-1.0 mg/dL Aspartate Amino Transferase (AST) 19 13-40 U/L Alanine Aminotransferase (ALT) 14 7-40 U/L Alkaline Phosphatase 74 46-116 U/L Total Protein 6.4 5.7-8.2 g/dL Albumin 3.9 3.2-4.8 g/dL Urine Color Light-brown Yellow Urine Clarity Turbid H Clear Urine pH 8.5 5.0-9.0 Urine Specific [place] 1.021 1.001-1.035 Urine Protein 1+ H Negative Urine Ketones Trace Negative Urine Blood 3+ H Negative /uL Urine Nitrite Negative Negative Urine Bilirubin Negative Negative Urine Urobilinogen Normal Negative mg/dL Urine Leukocyte Esterase Negative Negative /uL Urine RBC 3123 0 - 3 /hpf Urine Microscopic WBC 1 0-3 /HPF Urine Squamous Epithelial Cells None seen <5 /hpf Urine Bacteria None seen None Seen /hpf Urine Mucus Few None Seen Urine Glucose Normal Normal mg/dL Assessment 64-year-old with a history of hyperlipidemia depression peptic ulcer disease came with complaints of abdominal pain in the epigastrium and both lower quadrants with nausea vomiting and diarrhea if physical examination showed some mild epigastric tenderness labs showed that the hemoglobin was 15.3 white count is 11.4 liver enzymes all normal. CT scan of the abdomen showed no gross abnormalities in the abdomen and pelvis Clinical impression abdominal pain nausea vomiting diarrhea some possible some GI bleed hemoglobin is stable Possible gastric gastritis and gastroenteritis possible ulcer disease Plan/Recommendation We will recommend to treat with PPIs watch closely for any gross bleeding follow hemoglobin and crit closely In case bleeding persist we will recommend EGD evaluation Also get stool studies for O&P C&S and occult blood Thank you Dr. Josephine Haji discussed with: Patient RUBY MONTAÑO MD Nov 03, 2024 19:45
[2024-11-04] VITALS (7 sets, daily range): BP systolic 116–143; BP diastolic 65–77; PULSE 53–61; RESP 17–20; TEMP 98–100.6; O2SAT 19–98
[2024-11-04 05:26] LABS: Basophils # (auto) 0 10 ^3/uL (0-0.2); Basophils % (auto) 0.3 % (0.0-2.0); Eosinophils # (auto) 0 10 ^3/uL (0-0.8); Eosinophils % (auto) 0.2 % (0.0-7.0); Hematocrit 38.5 % (41.0-53.0); Hemoglobin 13.1 g/dL (13.5-17.5); Lymphocytes # (auto) 1.8 10 ^3/uL (0.4-5.4); Lymphocytes % (auto) 17.7 % (10.0-50.0); Mean Corpuscular Volume 91.2 fL (80.0-100.0); Monocytes % (auto) 9.8 % (0.0-12.0); Neutrophils # (auto) 7.2 10 ^3/uL (1.6-8.6); Nucleated Red Blood Cells % 0.1 %; Platelet Count (auto) 220 10^3/uL (140-450); Red Blood Cells 4.22 10^6/uL (4.5-5.90); Red Cell Distribution Width 13.9 % (11.8-14.3)
[2024-11-04 05:44] LABS: Alanine Aminotransferase 12 U/L (7-40); Albumin 3.7 g/dL (3.2-4.8); Alkaline Phosphatase 66 U/L (46-116); Anion Gap 8 (5-15); Aspartate Aminotransferase 20 U/L (13-40); Bilirubin, Total 0.7 mg/dL (0.2-1.0); Calcium 8.8 mg/dL (8.7-10.4); Carbon Dioxide 23 mmol/L (20-31); Glucose 96 mg/dL (74-106); Sodium 144 mmol/L (136-145)
[2024-11-04 05:52] LABS: Blood Urea Nitrogen 7 mg/dL (9-23); Chloride 113 mmol/L (98-107)
[2024-11-04] MEDS: SIMETHICONE 80 MG CHEWABLE TABLET PO SCH (09:43)
[2024-11-04 11:08] LABS: PSA Free 0.24 ng/mL; Prostate Specific Antigen 0.9 ng/mL (0.0-4.0)
--- NOTE | 2024-11-04 16:39 | DVHPNRES ---
Progress Note Date Seen: Nov 04, 2024 Resident Creating Document: LICHA MCCARTY RESIDENT Has the PT tested + for MRSA If YES, has PT been informed?: No Medical Necessity Reason Pt with a Central, PICC or Fol: No Subjective Review of Systems Hong Duckworth is a 64-year-old male with a past medical history of hyperlipidemia, depression, and peptic ulcer disease who presented with abdominal pain, nausea, vomiting, and diarrhea that started yesterday. He describes his vomiting as brown, resembling coffee grounds, and reports bright red blood in his diarrhea. He has a history of a bleeding ulcer over 10 years ago, which required cauterization, with his last EGD approximately two years ago. Additionally, the patient reports left flank pain and hematuria. A CT scan was performed and showed no acute process, prostatomegaly and small fat inguinal hernia . Gastroenterology and Urology were consulted and is pending evaluation. The patient has been started on antibiotics, including metronidazole, and placed on IV fluids for supportive care. HB stable Objective vital signs Vital Sign Date Time Temp Pulse Resp B/P (MAP) Pulse Ox O2 Delivery O2 Flow Rate FiO2 11/04/24 13:00 98.0 61 18 128/65 (86) 98 98.0 11/04/24 08:00 Room Air* 0 21 Total Intake and Output 11/03/24 11/03/24 11/04/24 15:00 23:00 07:00 Intake Total 50 ml 1900 ml 2018 ml Balance 50 ml 1900 ml 2018 ml medications Current Medications Medications Dose Ordered Sig/Dimitry Route Start Time Stop Time Status Last Admin Dose Admin Acetaminophen/ Hydrocodone Bitart 1 tab Q4HP PRN PO 11/02/24 17:00 11/04/24 15:48 1 TAB Ondansetron HCl 4 mg Q4HP PRN IV 11/02/24 17:00 11/03/24 19:46 4 MG Acetaminophen 650 mg Q6HP PRN PO 11/02/24 17:00 Morphine Sulfate 2 mg Q4HPRN PRN IV 11/02/24 17:00 11/03/24 20:00 2 MG Ceftriaxone Sodium 50 ml @ 100 mls/hr DAILY@09 IV 11/03/24 09:00 11/04/24 09:45 100 MLS/HR Metronidazole 100 ml @ 100 mls/hr Q8HR IV 11/02/24 22:00 11/04/24 15:12 100 MLS/HR Pantoprazole Sodium 40 mg BID IV 11/02/24 22:00 11/04/24 09:42 40 MG Sodium Chloride 1,000 ml @ 150 mls/hr Q6H40M IV 11/03/24 09:15 11/04/24 09:42 150 MLS/HR Dimethicone 40 mg QID PO 11/04/24 09:15 11/04/24 15:09 40 MG Dicyclomine HCl 20 mg QID PO 11/04/24 18:00 11/18/24 17:59 Examination General Appearance: Alert, Oriented X3, Cooperative, No acute distress HEENT: Atraumatic, PERRLA, Mucous membr. moist/pink Respiratory: Clear to auscultation, Normal air movement Cardiovascular: Regular rate, Normal S1, Normal S2, No murmurs Abdominal: distended, tenderness at palpation in midgastrium and left flank Extremities: No clubbing, No cyanosis, No edema, Normal pulses, No tenderness/swelling Skin: No rashes, No breakdown, No significant lesion Neuro: Normal gait, Strength at 5/5 X4 ext, Normal tone Psych/Mental Status: Mental status NL, Mood NL laboratory and microbiology Laboratory Tests 11/04/24 04:38 Test 11/04/24 04:38 Range/Units Serum Glucose 96 74-106 mg/dL Microbiology Date/Time Source Procedure Growth Status 11/02/24 15:00 Voided Urine Urine Culture - Preliminary Resulted Problem List/Assessment/Plan Problem List/Assessment/Plan #Upper Gi Bleeding #Hematuria #Possible acute gastroenteritis #Sepsis? #Prostatomegaly #Small inguinal hernia Advance diet IV fluids Ceftriaxone + metronidazole Gi consult: treat with PPIs watch closely for any gross bleeding follow hemoglobin and crit closely Urology consult: cystoscopy as outpatient PSA normal, SOB, urine culture pending Pain management Case discussed with Dr Jean Baptiste Plan discussed with: Patient, Other My Orders My Orders Orders - LICHA MCCARTY RESIDENT Procedure Category Date Status Time Simethicone Tab PHA 11/04/24 In Process (Mylicon Tab) 09:15 Dicyclomine Capsule PHA 11/04/24 In Process (Bentyl Capsule) 18:00 Dietary Evaluation Review Comments: 1) Advance diet as medically feasible 2) Continue current plan of care Expected Outcomes/Goals: Pt will meet >75% estimated needs Fu 2-3 days Date of Service: Nov 04, 2024 Billing Provider: PENNY JEAN BAPTISTE MD Common Visit Codes: [id number] INP/OBS CARE(HIGH) LICHA MCCARTY RESIDENT Nov 04, 2024 16:39 PENNY JEAN BAPTISTE MD Nov 05, 2024 14:37
[2024-11-04] MEDS: DICYCLOMINE HCL 10 MG CAP PO SCH (18:27)
[2024-11-05] VITALS (7 sets, daily range): BP systolic 111–148; BP diastolic 68–76; PULSE 51–65; RESP 15–18; TEMP 98.6–100; O2SAT 96–98
[2024-11-05] MEDS: ACETAMINOPHEN 325 MG TAB PO PRN (02:53)
[2024-11-05 07:42] LABS: Basophils # (auto) 0 10 ^3/uL (0-0.2); Basophils % (auto) 0.3 % (0.0-2.0); Eosinophils # (auto) 0.1 10 ^3/uL (0-0.8); Eosinophils % (auto) 0.6 % (0.0-7.0); Hematocrit 40.3 % (41.0-53.0); Hemoglobin 13.7 g/dL (13.5-17.5); Lymphocytes % (auto) 17.1 % (10.0-50.0); Mean Corpuscular Hemoglobin 30.8 pg (28.0-32.0); Mean Corpuscular Volume 90.6 fL (80.0-100.0); Monocytes # (auto) 1.4 10 ^3/uL (0-1.3); Monocytes % (auto) 11.7 % (0.0-12.0); Neutrophils # (auto) 8.3 10 ^3/uL (1.6-8.6); Neutrophils % (auto) 70.3 % (37.0-80.0); Nucleated Red Blood Cells % 0.1 %; Platelet Count (auto) 230 10^3/uL (140-450); Red Blood Cells 4.45 10^6/uL (4.5-5.90); Red Cell Distribution Width 13.8 % (11.8-14.3); White Blood Cell 11.8 10^3/uL (4.4-10.8)
[2024-11-05 08:09] LABS: Alanine Aminotransferase 14 U/L (7-40); Albumin 3.8 g/dL (3.2-4.8); Alkaline Phosphatase 70 U/L (46-116); Anion Gap 10 (5-15); Aspartate Aminotransferase 22 U/L (13-40); BUN/Creatinine Ratio 6.5 (10.0-20.0); Carbon Dioxide 23 mmol/L (20-31); Glucose 89 mg/dL (74-106); Sodium 141 mmol/L (136-145); Total Protein 6.3 g/dL (5.7-8.2)
[2024-11-05 08:10] LABS: Bilirubin, Total 0.8 mg/dL (0.2-1.0)
[2024-11-05 08:12] LABS: Blood Urea Nitrogen 6 mg/dL (9-23); Chloride 108 mmol/L (98-107); Potassium 3.3 mmol/L (3.5-5.1)
--- NOTE | 2024-11-05 10:35 | DVHPNRES ---
Progress Note Date Seen: Nov 05, 2024 Resident Creating Document: LANDON CARRILLO RESIDENT Has the PT tested + for MRSA If YES, has PT been informed?: No Medical Necessity Reason Pt with a Central, PICC or Fol: No Subjective Review of Systems Hong Duckworth is a 64-year-old male with a past medical history of hyperlipidemia, depression, and peptic ulcer disease who presented with abdominal pain, nausea, vomiting, and diarrhea that started yesterday. He describes his vomiting as brown, resembling coffee grounds, and reports bright red blood in his diarrhea. He has a history of a bleeding ulcer over 10 years ago, which required cauterization, with his last EGD approximately two years ago. Additionally, the patient reports left flank pain and hematuria. A CT scan was performed and showed no acute process, prostatomegaly and small fat inguinal hernia . Gastroenterology and Urology were consulted and is pending evaluation. The patient has been started on antibiotics, including metronidazole, and placed on IV fluids for supportive care. HB stable 11/05-patient is hemodynamically stable, reports no active distress. Tolerating diet. No episodes of emesis overnight. WBC increased to 11.8 this morning. Abdomen is nontender on exam. Mild hypokalemia which is replenish. Magnesium is pending. Objective vital signs Vital Sign Date Time Temp Pulse Resp B/P (MAP) Pulse Ox O2 Delivery O2 Flow Rate FiO2 11/05/24 05:36 98.6 61 18 142/68 (92) 98 98.6 11/04/24 20:00 Room Air* 0 21 Total Intake and Output 11/04/24 11/04/24 11/05/24 15:00 23:00 07:00 Intake Total 2000 ml 1950 ml Balance 2000 ml 1950 ml medications Current Medications Medications Dose Ordered Sig/Dimitry Route Start Time Stop Time Status Last Admin Dose Admin Acetaminophen/ Hydrocodone Bitart 1 tab Q4HP PRN PO 11/02/24 17:00 11/04/24 15:48 1 TAB Ondansetron HCl 4 mg Q4HP PRN IV 11/02/24 17:00 11/04/24 18:33 4 MG Acetaminophen 650 mg Q6HP PRN PO 11/02/24 17:00 11/05/24 02:53 650 MG Morphine Sulfate 2 mg Q4HPRN PRN IV 11/02/24 17:00 11/03/24 20:00 2 MG Ceftriaxone Sodium 50 ml @ 100 mls/hr DAILY@09 IV 11/03/24 09:00 11/04/24 09:45 100 MLS/HR Metronidazole 100 ml @ 100 mls/hr Q8HR IV 11/02/24 22:00 11/05/24 05:41 100 MLS/HR Pantoprazole Sodium 40 mg BID IV 11/02/24 22:00 11/04/24 21:39 40 MG Sodium Chloride 1,000 ml @ 150 mls/hr Q6H40M IV 11/03/24 09:15 11/05/24 02:30 150 MLS/HR Dimethicone 40 mg QID PO 11/04/24 09:15 11/05/24 05:42 40 MG Dicyclomine HCl 20 mg QID PO 11/04/24 18:00 11/18/24 17:59 11/05/24 05:41 20 MG Potassium Chloride 100 ml @ 50 mls/hr Q2H IV 11/05/24 09:15 11/05/24 13:14 UNV Examination Patient lying in bed, in no acute distress General: Well-built, afebrile, palor, mucosae are moist Cardiovascular: Regular S1 and S2. No murmurs, gallops or rubs. No JVD elevation. No pedal edema Respiratory: Normal B/L air entry on room air. Clear lung sounds on auscultation Abdomen: Soft, nontender, nondistended, normoactive bowel sounds, no rebound tenderness, no organomegaly, no masses Genitourinary: Deferred MSK/skin: Mobilizes 4 limbs. Skin is dry and warm Neurological: No motor, no sensitive deficits, normal speech. Pupils are isocoric and reactive. Psych/Mental Status: A/Ox3 laboratory and microbiology Laboratory Tests 11/05/24 06:04 Test 11/05/24 06:04 Range/Units Serum Glucose 89 74-106 mg/dL Microbiology Date/Time Source Procedure Growth Status 11/02/24 15:00 Voided Urine Urine Culture - Preliminary Resulted Labs and/or images reviewed: Labs reviewed by me, Image(s) reviewed by me Problem List/Assessment/Plan Problem List/Assessment/Plan 11/05-patient is hemodynamically stable, reports no active distress. Tolerating diet. No episodes of emesis overnight. WBC increased to 11.8 this morning. Abdomen is nontender on exam. Mild hypokalemia which is replenish. Magnesium is pending. GI recommended stool ova and parasites and stool culture which is ordered, pending. #Upper Gi Bleeding #Hematuria #Possible acute gastroenteritis #Sepsis? #Prostatomegaly #Small inguinal hernia # hypokalemia Advance diet IV fluids Ceftriaxone + metronidazole Gi consult: Recommended conservative measures, treat with PPIs watch closely for any gross bleeding follow hemoglobin and crit closely Urology consult: cystoscopy as outpatient PSA normal, SOB, prelim urine culture negative Follow up with the stool ova and parasites along with the stool culture Pain management VTE prophylaxis: SCDs Case discussed with Dr El Plan discussed with: Patient My Orders My Orders Orders - LANDON CARRILLO Procedure Category Date Status Time Stool Bacterial RIKKI 11/05/24 Uncollected Culture 07:26 Ova & Parasite Exam RIKKI 11/05/24 Uncollected 07:26 Potassium Chl PHA 11/05/24 Logged 20meq/100ml 09:15 Magnesium LAB 11/05/24 In Process 09:15 Dietary Evaluation Review Comments: 1) Advance diet as medically feasible 2) Continue current plan of care Expected Outcomes/Goals: Pt will meet >75% estimated needs Fu 2-3 days Date of Service: Nov 05, 2024 Billing Provider: PENNY EL MD Common Visit Codes: [id number] INP/OBS CARE(HIGH) LANDON CARRILLO RESIDENT Nov 05, 2024 10:35 PENNY EL MD Nov 05, 2024 14:38
[2024-11-05] MEDS ORDERED: SODIUM CHL 0.9% 100 ML IV SCH (11:00)
[2024-11-05] MEDS: POTASSIUM CHL 20MEQ/50ML 50 ML IV SCH (15:19)
--- NOTE | 2024-11-05 15:37 | DVHPN2 ---
Progress Note - Dictate Date Seen: Nov 05, 2024 Has the PT tested + for MRSA If YES, has PT been informed?: No Medical Necessity Reason Pt with a Central, PICC or Fol: No Subjective Patient doing reasonably well has got some and abdominal pain no gross GI bleeding at this time vital signs Vital Sign Date Time Temp Pulse Resp B/P (MAP) Pulse Ox O2 Delivery O2 Flow Rate FiO2 11/05/24 13:00 99.1 56 15 142/73 (96) 96 99.1 11/04/24 20:00 Room Air* 0 21 Total Intake and Output 11/04/24 11/04/24 11/05/24 15:00 23:00 07:00 Intake Total 2000 ml 1950 ml Balance 2000 ml 1950 ml medications Current Medications Medications Dose Ordered Sig/Dimitry Route Start Time Stop Time Status Last Admin Dose Admin Acetaminophen/ Hydrocodone Bitart 1 tab Q4HP PRN PO 11/02/24 17:00 11/04/24 15:48 1 TAB Ondansetron HCl 4 mg Q4HP PRN IV 11/02/24 17:00 11/04/24 18:33 4 MG Acetaminophen 650 mg Q6HP PRN PO 11/02/24 17:00 11/05/24 02:53 650 MG Morphine Sulfate 2 mg Q4HPRN PRN IV 11/02/24 17:00 11/03/24 20:00 2 MG Ceftriaxone Sodium 50 ml @ 100 mls/hr DAILY@09 IV 11/03/24 09:00 11/05/24 10:26 100 MLS/HR Metronidazole 100 ml @ 100 mls/hr Q8HR IV 11/02/24 22:00 11/05/24 13:21 100 MLS/HR Pantoprazole Sodium 40 mg BID IV 11/02/24 22:00 11/05/24 10:25 40 MG Sodium Chloride 1,000 ml @ 150 mls/hr Q6H40M IV 11/03/24 09:15 11/05/24 02:30 150 MLS/HR Dimethicone 40 mg QID PO 11/04/24 09:15 11/05/24 12:11 40 MG Dicyclomine HCl 20 mg QID PO 11/04/24 18:00 11/18/24 17:59 11/05/24 12:12 20 MG Sodium Chloride 100 ml @ 50 mls/hr Q2H IV 11/05/24 11:00 11/05/24 14:59 Cancel objective Abdomen soft nontender no masses bowel sounds normal laboratory and microbiology Laboratory Tests 11/05/24 06:04 Test 11/05/24 06:04 Range/Units Serum Glucose 89 74-106 mg/dL Assessment/Plan 64-year-old with a history of hyperlipidemia depression peptic ulcer disease came with complaints of abdominal pain in the epigastrium and both lower quadrants with nausea vomiting and diarrhea if physical examination showed some mild epigastric tenderness labs showed that the hemoglobin was 15.3 white count is 11.4 liver enzymes all normal. CT scan of the abdomen showed no gross abnormalities in the abdomen and pelvis Clinical impression abdominal pain nausea vomiting diarrhea some possible some GI bleed hemoglobin is stable Possible gastritis and gastroenteritis possible ulcer disease Patient is clinically much better improving well continued symptomatic treatment at this time watch the labs closely Thank you Dietary Evaluation Review Comments: 1) Advance diet as medically feasible 2) Continue current plan of care Expected Outcomes/Goals: Pt will meet >75% estimated needs Fu 2-3 days Plan discussed with: Patient RUBY MONTAÑO MD Nov 05, 2024 15:37
[2024-11-06 01:00] VITALS: BP 132/66; PULSE 59; RESP 18; TEMP 100; O2SAT 96
[2024-11-06 05:00] VITALS: BP 136/71; PULSE 88; RESP 18; TEMP 99.5; O2SAT 99
[2024-11-06 09:00] VITALS: BP 125/79; PULSE 71; RESP 18; TEMP 98.2; O2SAT 97
[2024-11-06] MEDS ORDERED: SIME80CH13 PO (09:42)
[2024-11-06] MEDS ORDERED: PANT40TA2 PO (09:42)
[2024-11-06 10:44] VITALS: TEMP 36.8
[2024-11-06] MEDS ORDERED: DICY10CA PO (11:24)
--- NOTE | 2024-11-06 11:38 | DVHDSRES ---
Discharge Summary Date of Admission Resident Creating Document: LANDON CARRILLO RESIDENT Nov 02, 2024 at 16:49 Date of Discharge: Nov 06, 2024 Admitting Diagnosis GI bleeding? Intractable abdominal pain Hematuria Labs/Diagnostic Data: Laboratory Results Test 11/05/24 18:15 11/05/24 06:04 11/03/24 09:40 11/02/24 15:00 Stool Occult Blood Negative (Negative) Stool Occult Blood Sample #3 (Negative) White Blood Count 11.8 10^3/uL (4.4-10.8) Red Blood Count 4.45 10^6/uL (4.5-5.90) Hemoglobin 13.7 g/dL (13.5-17.5) Hematocrit 40.3 % (41.0-53.0) Mean Corpuscular Volume 90.6 fL (80.0-100.0) Mean Corpuscular Hemoglobin 30.8 pg (28.0-32.0) Mean Corpuscular Hemoglobin Concent 34.0 g/dL (32.0-36.0) Red Cell Distribution Width 13.8 % (11.8-14.3) Platelet Count 230 10^3/uL (140-450) Mean Platelet Volume 7.7 fL (6.9-10.8) Neutrophils (%) (Auto) 70.3 % (37.0-80.0) Lymphocytes (%) (Auto) 17.1 % (10.0-50.0) Monocytes (%) (Auto) 11.7 % (0.0-12.0) Eosinophils (%) (Auto) 0.6 % (0.0-7.0) Basophils (%) (Auto) 0.3 % (0.0-2.0) Neutrophils # (Auto) 8.3 10 ^3/uL (1.6-8.6) Lymphocytes # (Auto) 2.0 10 ^3/uL (0.4-5.4) Monocytes # (Auto) 1.4 10 ^3/uL (0-1.3) Eosinophils # (Auto) 0.1 10 ^3/uL (0-0.8) Basophils # (Auto) 0 10 ^3/uL (0-0.2) Nucleated Red Blood Cells 0.1 % Sodium Level 141 mmol/L (136-145) Potassium Level 3.3 mmol/L (3.5-5.1) Chloride Level 108 mmol/L (98-107) Carbon Dioxide Level 23 mmol/L (20-31) Anion Gap 10 (5-15) Blood Urea Nitrogen 6 mg/dL (9-23) Creatinine 0.93 mg/dL (0.700-1.30) Glomerular Filtration Rate Calc 92 mL/min (>90) BUN/Creatinine Ratio 6.5 (10.0-20.0) Serum Glucose 89 mg/dL (74-106) Calcium Level 9.0 mg/dL (8.7-10.4) Magnesium Level 1.9 mg/dL (1.6-2.6) Total Bilirubin 0.8 mg/dL (0.2-1.0) Aspartate Amino Transferase (AST) 22 U/L (13-40) Alanine Aminotransferase (ALT) 14 U/L (7-40) Alkaline Phosphatase 70 U/L (46-116) Total Protein 6.3 g/dL (5.7-8.2) Albumin 3.8 g/dL (3.2-4.8) Free Prostate Specific Antigen 0.24 ng/mL (N/A) Percent Free Prostate Specific Ag 26.7 % (.) Prostate Specific Antigen Total 0.9 ng/mL (0.0-4.0) Urine Color Light-brown (Yellow) Urine Clarity Turbid (Clear) Urine pH 8.5 (5.0-9.0) Urine Specific Hurst 1.021 (1.001-1.035) Urine Protein 1+ (Negative) Urine Ketones Trace (Negative) Urine Blood 3+ /uL (Negative) Urine Nitrite Negative (Negative) Urine Bilirubin Negative (Negative) Urine Urobilinogen Normal mg/dL (Negative) Urine Leukocyte Esterase Negative /uL (Negative) Urine RBC 3123 /hpf (0 - 3) Urine Microscopic WBC 1 /HPF (0-3) Urine Squamous Epithelial Cells None seen /hpf (<5) Urine Bacteria None seen /hpf (None Seen) Urine Mucus Few (None Seen) Urine Glucose Normal mg/dL (Normal) Other Laboratory Tests 11/05/24 06:04 Brief Hx & Hospital Course: Hong Duckworth is a 64-year-old male with a past medical history of hyperlipidemia, depression, and peptic ulcer disease who presented with abdominal pain, nausea, vomiting, and diarrhea that started yesterday. He describes his vomiting as brown, resembling coffee grounds, and reports bright red blood in his diarrhea. He has a history of a bleeding ulcer over 10 years ago, which required cauterization, with his last EGD approximately two years ago. Additionally, the patient reports left flank pain and hematuria. A CT scan was performed and showed no acute process, prostatomegaly and small fat inguinal hernia . The patient has been started on antibiotics, including metronidazole, and placed on IV fluids for supportive care. HB stable SOB came negative Gastroenterology stated Possible gastritis and gastroenteritis possible ulcer disease, no need of inpatient procedures. Urology were consulted who considered Outpatient cystoscopy. PSA levels were normal. His abdominal pain resolved with simeticone and dicyclomine. Patient is DC stable with oral medication and advised to continue f/u with GI and urology as outpatient General Appearance: Alert, Oriented X3, Cooperative, No acute distress HEENT: Atraumatic, PERRLA, Mucous membr. moist/pink Respiratory: Clear to auscultation, Normal air movement Cardiovascular: Regular rate, Normal S1, Normal S2, No murmurs Abdominal: distended, tenderness at palpation in midgastrium and left flank Extremities: No clubbing, No cyanosis, No edema, Normal pulses, No tenderness/swelling Skin: No rashes, No breakdown, No significant lesion Neuro: Normal gait, Strength at 5/5 X4 ext, Normal tone Psych/Mental Status: Mental status NL, Mood NL Case discussed with Dr El Consults/Reason for consult GI: due to possible gi bleeding Urology: hematuria Operations or Procedures CT ABDOMEN AND PELVIS WITHOUT CONTRAST CLINICAL HISTORY: pain TECHNIQUE: Multiple contiguous axial images of the abdomen and pelvis without intravenous contrast. The images were reformatted degenerate coronal and sagittal reconstructions. All CT scans at this medical facility are performed using dose modulation techniques as appropriate to a performed exam including the following:Automated exposure control was utilized; adjustment of the MA and/or KV according to patient size; and use of iterative reconstruction technique. Radiation Dose Information: CT Dose: CTDI volume is 8 mGy. Dose-length product is 474 mGy*cm Comparison: None FINDINGS: Evaluation of the abdomen and pelvis is limited without intravenous contrast. There is a 1.9 cm left lower pole renal cyst. There is no evidence of nephrolithiasis or hydronephrosis. The liver, gallbladder, pancreas, adrenal glands, and spleen appear within normal limits. There is no gross evidence of abdominal lymphadenopathy. There is no free fluid or free air. The stomach grossly appears unremarkable. The small and large bowel loops demonstrate normal caliber. The appendix is not seen in the right lower quadrant abdomen. There are no secondary signs of acute appendicitis. The abdominal aorta and IVC appear within normal limits. The bladder appears unremarkable for the degree of distention. There is mild prostatomegaly.. There is no gross evidence of a pelvic mass. There is no free fluid collection. Is a small fat containing left inguinal hernia. Lung bases are clear. There is no acute osseous abnormality. IMPRESSION: 1. There is no acute process in the abdomen and pelvis. 2. Mild prostatomegaly. 3. Small fat containing left inguinal hernia. Condition at Discharge: Stable Final Diagnosis/Problems List #Upper Gi Bleeding ? #Hematuria #Possible acute gastroenteritis #Sepsis without OD #Prostatomegaly #Small inguinal hernia #peptic ulcer disease Discharge Disposition: Home Discharge Instruct/Medications Diet: See Comment Diet comment: soft diet for 1 week Activity: Light activity Follow Up/Referral: fu Dr Vasquez for further cystoscpy outpatient, [facility] for EGD as outpatient Medications: see prescription Discharge Statement: "Patient was advised to return to the ER or call 911 if any headaches, dizziness, shortness of breath, chest pain, abdominal pain, bleeding, fevers, or worsening of medical condition. Patient was counseled about treatment plan, medications, possible side effects, patientverbalized understanding. All questions were answered to the best of my ability. This discharge took greater then 30 minutes in planning, reviewing documentation, counseling the patient, and discussing with other team members." ASSESSMENT ASSESSMENT Assessment GI bleeding Hematuria Date of Service: Nov 06, 2024 Billing Provider: PENNY EL MD Common Visit Codes: 68347-ICP/OBS DISCH DAY >30min LICHA MCCARTY RESIDENT Nov 06, 2024 11:37 PENNY EL MD Nov 07, 2024 22:26
== END 2024-11-06 13:55 | disposition home or self-care (01) | DRG 720 ==
LOC: EDBD 12:54 → ER 12:54 → OVERFLOW 16:49 → WEST WING 23:59
PROVIDERS: ADMIT Internal Medicine; ATTEND Emergency Medicine
DX: A41.9 Sepsis, unspecified organism (principal); K29.71 Gastritis, unspecified, with bleeding; E78.5 Hyperlipidemia, unspecified; F32.A Depression, unspecified; A09 Infectious gastroenteritis and colitis, unspecified; N40.0 Benign prostatic hyperplasia without lower urinary tract symptoms; F12.90 Cannabis use, unspecified, uncomplicated; R31.9 Hematuria, unspecified; K40.90 Unilateral inguinal hernia, without obstruction or gangrene, not specified as recurrent; E87.6 Hypokalemia; Z88.6 Allergy status to analgesic agent; Z87.11 Personal history of peptic ulcer disease; Z79.1 Long term (current) use of non-steroidal anti-inflammatories (NSAID); Z79.891 Long term (current) use of opiate analgesic; Z79.899 Other long term (current) drug therapy; Z83.3 Family history of diabetes mellitus; Z80.3 Family history of malignant neoplasm of breast; Z79.2 Long term (current) use of antibiotics
CPT/HCPCS: 36415; 74176; 80053; 81001; 82270; 83735; 84154; 85025; 87086; 93005; 96361; 96374; 96375; G0378; J2405; J2470; J3490